=== PATIENT | female | born 1995 | race Caucasian/White ===

== ENCOUNTER 2020-03-14 20:59 | Emergency (ER) | payer OTHER ==
[~2020-03-14] VITALS: Ht 170.2 cm; Wt 61.2 kg
[2020-03-14 21:10] VITALS: BP 127/66
--- NOTE | 2020-03-14 21:17 | NUR ---
PA AT BEDSIDE FOR EVAL.
[2020-03-14] MEDS ORDERED: ACETAMINOPHEN ES 500 MG TABLET ONE (21:26)
[2020-03-14] MEDS ORDERED: LIDOCAINE 1% INJ 50 ML MDV IJ ONE (21:27)
[2020-03-14] MEDS ORDERED: LIDOCAINE HCL/PF 1% 30 ML VIAL TP ONE (21:30)
[2020-03-14] MEDS ORDERED: ACETAMINOPHEN 325 MG TABLET PO ONE (21:30)
--- NOTE | 2020-03-14 21:43 | NUR ---
PA AT BEDSIDE FOR SUTURE
== END 2020-03-15 00:26 | disposition home or self-care (01) ==
LOC: ER 20:59
DX: S91.311A Laceration without foreign body, right foot, initial encounter (principal); W20.8XXA Other cause of strike by thrown, projected or falling object, initial encounter; Y93.89 Activity, other specified; Y92.89 Other specified places as the place of occurrence of the external cause; Y99.8 Other external cause status
CPT/HCPCS: 12002; 99282; A6403; J3490 ×2